=== PATIENT | male | born 1935 | race Caucasian/White ===

== ENCOUNTER 2018-11-02 17:18 | Inpatient (IN) | payer OTHER ==
[~2018-11-02] VITALS: Ht 170.2 cm; Wt 78.2 kg
[~2018-11-02 17:18] MED LIST: ALDACTONE25 MG PO; AMIODARONE HCL200 MG PO; CARVEDILOL6.25 M1 PO; COUMADIN2.5 MG PO; DIGOXIN0.125 M1 PO; DIOVAN80 MG PO; MEXILETINE250 MG PO; ZYL300 PO
[2018-11-02 18:25] LABS: BASOPHIL % 0 % (0-2); PLATELET COUNT 117 x10^3mcL (130-400)
[2018-11-02 18:28] LABS: microscopic required? YES; urine erythrocyte 3+ (NEGATIVE)
[2018-11-02 18:42] LABS: CK-MB 22.1 ng/mL (0-3.6)
[2018-11-02] MEDS ORDERED: ATORVASTATIN CA40 M1 PO (18:43)
[2018-11-02] MEDS ORDERED: FUROSEMIDE20 MG PO (18:44)
[2018-11-02] MEDS ORDERED: CYTOMEL5 MCG PO (18:44)
[2018-11-02] MEDS ORDERED: ASPIRIN ADULT L81 M5 PO (18:44)
[2018-11-02] MEDS ORDERED: SYNTHROID0.112 MG PO (18:45)
[2018-11-02] MEDS ORDERED: ELIQUIS5 MG PO (18:45)
[2018-11-02] MEDS ORDERED: PREDNISONE20 MG PO (18:46)
[2018-11-02 19:51] LABS: ALBUMIN 2.6 g/dL (3.4-5.0); ALKALINE PHOSPHATASE 69 U/L (46-116); ALT/SGPT 332 U/L (16-63); AST/SGOT 578 U/L (15-37); BILIRUBIN TOTAL 2.5 mg/dL (0.20-1.00); CALCIUM 9.7 mg/dL (8.5-10.1); CARBON DIOXIDE 30.4 mmol/L (21-32); CHLORIDE SERUM 95 mmol/L (98-107); CREATININE SERUM 2.9 mg/dL (0.7-1.3); GLUCOSE SERUM 132 mg/dL (74-106); SODIUM SERUM 132 mmol/L (136-145); TOTAL PROTEIN, SERUM 5.9 g/dL (6.4-8.2)
[2018-11-02 22:04] LABS: MAGNESIUM 3.4 mg/dL (1.8-2.4); PHOSPHOROUS 5.1 mg/dL (2.5-4.9)
[2018-11-02 22:32] LABS: CHOLESTEROL/HDL RATIO 3.9
[2018-11-02 22:37] VITALS: BP 108/58
[2018-11-03] MEDS ORDERED: CARVEDILOL3.125 M1 PO (00:55)
[2018-11-03 00:59] VITALS: BP 108/58
[2018-11-03 01:03] LABS: AMPHETAMINE QUAL UR NONE DETECTED (See below)
[2018-11-03 05:29] VITALS: BP 100/54
[2018-11-03 06:37] LABS: CALCIUM 9.3 mg/dL (8.5-10.1); CARBON DIOXIDE 33.2 mmol/L (21-32); CHLORIDE SERUM 97 mmol/L (98-107); CREATININE SERUM 2.7 mg/dL (0.7-1.3); GLUCOSE SERUM 132 mg/dL (74-106); MAGNESIUM 3.4 mg/dL (1.8-2.4); PHOSPHOROUS 5.8 mg/dL (2.5-4.9); SODIUM SERUM 137 mmol/L (136-145)
[2018-11-03 06:41] LABS: BASOPHIL % 0 % (0-2); PLATELET COUNT 109 x10^3mcL (130-400); RED CELL DISTRIBUTION WIDTH 16.9 % (11.5-14.5)
[2018-11-03 07:02] LABS: POTASSIUM SERUM 5.6 mmol/L (3.5-5.1)
[2018-11-03 08:56] VITALS: BP 97/49
[2018-11-03 13:01] VITALS: BP 93/49
[2018-11-03 16:00] VITALS: BP 144/70
[2018-11-03 20:40] VITALS: BP 99/53
[2018-11-04 05:39] VITALS: BP 94/49
[2018-11-04 06:23] LABS: CALCIUM 9.2 mg/dL (8.5-10.1); CARBON DIOXIDE 34.4 mmol/L (21-32); CHLORIDE SERUM 98 mmol/L (98-107); CREATININE SERUM 2.3 mg/dL (0.7-1.3); GLUCOSE SERUM 123 mg/dL (74-106); MAGNESIUM 3.2 mg/dL (1.8-2.4); PHOSPHOROUS 5.3 mg/dL (2.5-4.9); POTASSIUM SERUM 4.6 mmol/L (3.5-5.1); SODIUM SERUM 134 mmol/L (136-145)
[2018-11-04 07:45] LABS: BASOPHIL % 0 % (0-2); PLATELET COUNT 107 x10^3mcL (130-400); RED CELL DISTRIBUTION WIDTH 17.7 % (11.5-14.5)
[2018-11-04 09:24] VITALS: BP 93/50
[2018-11-04 13:16] VITALS: BP 97/52
[2018-11-04 17:41] VITALS: BP 118/55
[2018-11-04 20:24] VITALS: BP 104/60
[2018-11-05 04:44] VITALS: BP 102/59
[2018-11-05 06:33] LABS: BASOPHIL % 0.5 % (0-2)
[2018-11-05 06:35] LABS: PLATELET COUNT 111 x10^3mcL (130-400); RED CELL DISTRIBUTION WIDTH 17.4 % (11.5-14.5)
[2018-11-05 07:25] LABS: BILIRUBIN DIRECT 1.34 mg/dL (0.0-0.2); BILIRUBIN TOTAL 1.7 mg/dL (0.20-1.00)
[2018-11-05 07:26] LABS: ALBUMIN 2.5 g/dL (3.4-5.0); TOTAL PROTEIN, SERUM 5.6 g/dL (6.4-8.2)
[2018-11-05 07:42] LABS: CALCIUM 9.5 mg/dL (8.5-10.1); CHLORIDE SERUM 95 mmol/L (98-107); CREATININE SERUM 2.1 mg/dL (0.7-1.3); GLUCOSE SERUM 110 mg/dL (74-106); POTASSIUM SERUM 4.7 mmol/L (3.5-5.1); SODIUM SERUM 133 mmol/L (136-145)
[2018-11-05 09:07] VITALS: BP 103/57
[2018-11-05 13:24] VITALS: BP 107/66
[2018-11-05 17:19] VITALS: BP 94/49
[2018-11-05 20:52] VITALS: BP 111/56
[2018-11-06 05:49] VITALS: BP 115/72
[2018-11-06 07:02] LABS: BASOPHIL % 0.1 % (0-2)
[2018-11-06 07:05] LABS: PLATELET COUNT 101 x10^3mcL (130-400); RED CELL DISTRIBUTION WIDTH 17.4 % (11.5-14.5)
[2018-11-06 07:35] LABS: CALCIUM 9.3 mg/dL (8.5-10.1); CARBON DIOXIDE 33.4 mmol/L (21-32); CHLORIDE SERUM 96 mmol/L (98-107); CREATININE SERUM 1.8 mg/dL (0.7-1.3); GLUCOSE SERUM 110 mg/dL (74-106); POTASSIUM SERUM 4.1 mmol/L (3.5-5.1); SODIUM SERUM 135 mmol/L (136-145)
[2018-11-06 09:00] VITALS: BP 104/55
[2018-11-06 12:40] VITALS: BP 118/55
[2018-11-06 17:50] VITALS: BP 102/54
[2018-11-06 20:32] VITALS: BP 105/53
[2018-11-07 05:59] VITALS: BP 93/45
[2018-11-07 06:53] LABS: CALCIUM 9.3 mg/dL (8.5-10.1); CHLORIDE SERUM 98 mmol/L (98-107); CREATININE SERUM 1.6 mg/dL (0.7-1.3); GLUCOSE SERUM 99 mg/dL (74-106); SODIUM SERUM 138 mmol/L (136-145)
[2018-11-07 07:00] LABS: BASOPHIL % 0 % (0-2); PLATELET COUNT 112 x10^3mcL (130-400)
[2018-11-07 09:35] VITALS: BP 96/55
[2018-11-07 12:37] VITALS: BP 95/44
[2018-11-07 17:02] VITALS: BP 99/47
[2018-11-07 20:50] VITALS: BP 96/50
[2018-11-08 05:17] VITALS: BP 100/50
[2018-11-08 06:22] LABS: PLATELET COUNT 95 x10^3mcL (130-400); RED CELL DISTRIBUTION WIDTH 17.1 % (11.5-14.5)
[2018-11-08 06:23] LABS: BASOPHIL % 0 % (0-2)
[2018-11-08 06:52] LABS: CALCIUM 9.2 mg/dL (8.5-10.1); CARBON DIOXIDE 38.2 mmol/L (21-32); CHLORIDE SERUM 98 mmol/L (98-107); CREATININE SERUM 1.6 mg/dL (0.7-1.3); GLUCOSE SERUM 109 mg/dL (74-106); POTASSIUM SERUM 4.5 mmol/L (3.5-5.1); SODIUM SERUM 139 mmol/L (136-145)
[2018-11-08 09:47] VITALS: BP 91/42
[2018-11-08 10:21] VITALS: BP 91/42
[2018-11-08 13:17] VITALS: BP 94/46
[2018-11-08 18:14] VITALS: BP 96/46
[2018-11-08 21:46] VITALS: BP 93/47
[2018-11-09 05:40] VITALS: BP 113/54
[2018-11-09 08:00] VITALS: BP 102/44
[2018-11-09 12:00] VITALS: BP 103/49
[2018-11-09 16:30] VITALS: BP 101/59
[2018-11-09 20:46] VITALS: BP 101/47
[2018-11-10 06:24] VITALS: BP 105/60
[2018-11-10 06:52] LABS: BASOPHIL % 0.1 % (0-2); PLATELET COUNT 122 x10^3mcL (130-400); RED CELL DISTRIBUTION WIDTH 17.7 % (11.5-14.5)
[2018-11-10 07:43] LABS: CALCIUM 10.3 mg/dL (8.5-10.1); CARBON DIOXIDE 36.6 mmol/L (21-32); CHLORIDE SERUM 98 mmol/L (98-107); CREATININE SERUM 1.5 mg/dL (0.7-1.3); GLUCOSE SERUM 87 mg/dL (74-106); POTASSIUM SERUM 3.9 mmol/L (3.5-5.1); SODIUM SERUM 142 mmol/L (136-145)
[2018-11-10 08:40] VITALS: BP 102/49
[2018-11-10 12:20] VITALS: BP 95/44
[2018-11-10 17:46] VITALS: BP 102/49
[2018-11-10 20:35] VITALS: BP 105/53
[2018-11-11 05:05] VITALS: BP 104/52
[2018-11-11 07:41] LABS: CARBON DIOXIDE 37.5 mmol/L (21-32); CHLORIDE SERUM 100 mmol/L (98-107); CREATININE SERUM 1.5 mg/dL (0.7-1.3); GLUCOSE SERUM 90 mg/dL (74-106); MAGNESIUM 2.3 mg/dL (1.8-2.4); POTASSIUM SERUM 3.2 mmol/L (3.5-5.1); SODIUM SERUM 142 mmol/L (136-145)
[2018-11-11 08:14] LABS: BASOPHIL % 0 % (0-2); PLATELET COUNT 125 x10^3mcL (130-400); RED CELL DISTRIBUTION WIDTH 17.6 % (11.5-14.5)
[2018-11-11 08:55] VITALS: BP 107/58
[2018-11-11 11:52] VITALS: BP 98/45
[2018-11-11 15:34] VITALS: BP 101/43
[2018-11-11 15:58] VITALS: BP 98/45
== END 2018-11-11 20:51 | DRG 280 ==
LOC: ED 17:18 → DU 21:19
PROVIDERS: Emergency Medicine; Internal Medicine; ADMIT Family Medicine
DX: I13.0 Hypertensive heart and chronic kidney disease with heart failure and stage 1 through stage 4 chronic kidney disease, or unspecified chronic kidney disease (principal); I21.4 Non-ST elevation (NSTEMI) myocardial infarction; E43 Unspecified severe protein-calorie malnutrition; I50.43 Acute on chronic combined systolic (congestive) and diastolic (congestive) heart failure; N17.0 Acute kidney failure with tubular necrosis; J96.01 Acute respiratory failure with hypoxia; E87.1 Hypo-osmolality and hyponatremia; E87.3 Alkalosis; M62.82 Rhabdomyolysis; D68.69 Other thrombophilia; E11.22 Type 2 diabetes mellitus with diabetic chronic kidney disease; E11.65 Type 2 diabetes mellitus with hyperglycemia; N18.3 Chronic kidney disease, stage 3 (moderate); I48.91 Unspecified atrial fibrillation; R74.0 Nonspecific elevation of levels of transaminase and lactic acid dehydrogenase [LDH]; D63.1 Anemia in chronic kidney disease; E87.5 Hyperkalemia; D69.6 Thrombocytopenia, unspecified; E78.00 Pure hypercholesterolemia, unspecified; Z95.0 Presence of cardiac pacemaker; Z96.642 Presence of left artificial hip joint; Z68.27 Body mass index [BMI] 27.0-27.9, adult; Z79.01 Long term (current) use of anticoagulants; Z79.84 Long term (current) use of oral hypoglycemic drugs; Z86.718 Personal history of other venous thrombosis and embolism
CPT/HCPCS: 36600; 82962; 83880; 92526-GN; 92610; 94150; 97110-GP; 97530-GP; J1120; J1940; J2543; J3010; J7030; J7050; J7512; J7620; P9047; Q0092

== ENCOUNTER 2018-12-17 11:44 | Inpatient (IN) | payer OTHER ==
[~2018-12-17] VITALS: Ht 167.6 cm; Wt 79.4 kg
[2018-12-17] VITALS (7 sets, daily range): BP systolic 91–190; BP diastolic 59–95; Ht 167.6 cm; Wt 79.4 kg
[~2018-12-17 11:44] MED LIST changes: +ASPIRIN ADULT L81 M5 PO; +ATORVASTATIN CA40 M1 PO; +CARVEDILOL3.125 M1 PO; +CYTOMEL5 MCG PO; +ELIQUIS5 MG PO; +FUROSEMIDE20 MG PO; +PREDNISONE20 MG PO; +SYNTHROID0.112 MG PO
--- NOTE | 2018-12-17 12:01 | NUR ---
PATIENT BIBA FOR ALOC. PER MEDICS, FAMILY CALLED IN AND STS PATIENT WAS SPEAKING BUT HAVING DIFFICULTY BREATHING. WHEN MEDICS ARRIVED, PATIENT WAS NOT RESPONDING. MEDICS STS PULSE OX WAS IN THE 60S AND APPLIED BVM, O2 SAT IN 80S/90S. [facility] [address]IENT NOT REPLYING. DR. PUCKETT AT BEDSIDE TO PREPARE INTUBATION. FAMILY CURRENTLY NOT AT BEDSIDE BUT MAKING THEIR WAY TO THE HOSPITAL. RT AT BEDSIDE.
--- NOTE | 2018-12-17 12:49 | NUR ---
ASSISTED CINTHIA RN W/ FINDING HEAD OF PENIS, PENIS RETRACTED INTO SWOLLEN FIRM SCROTUM. WAS ABLE TO GET HEAD OF PENIS TO EMERGE ONLY TO FIND IT COATED IN AN ORANGE CHEESY SUBSTANCE. HEAD OF PENIS CLEANSED W/ WIPES PRIOR TO CINTHIA RN INSERTING ARANGO. URINE HAD DIYA PYURIA ONCE OBTAINED VIA CATH.
[2018-12-17 12:54] LABS: BASOPHIL % 0.2 % (0-2)
--- NOTE | 2018-12-17 12:55 | NUR ---
PT SENT TO CT
[2018-12-17 13:12] LABS: PLATELET COUNT 68 x10^3mcL (130-400); RED CELL DISTRIBUTION WIDTH 25.8 % (11.5-14.5)
[2018-12-17 13:14] LABS: rbc morphology (normal/abnorm) ABNORMAL (NORMAL)
[2018-12-17 13:15] LABS: ALKALINE PHOSPHATASE 87 U/L (46-116); ALT/SGPT 27 U/L (16-63); AST/SGOT 46 U/L (15-37); BILIRUBIN TOTAL 2.7 mg/dL (0.20-1.00); CALCIUM 9.2 mg/dL (8.5-10.1); CARBON DIOXIDE 38.6 mmol/L (21-32); CHLORIDE SERUM 99 mmol/L (98-107); CREATININE SERUM 2.9 mg/dL (0.7-1.3); GLUCOSE SERUM 71 mg/dL (74-106); SODIUM SERUM 138 mmol/L (136-145)
[2018-12-17 13:19] LABS: ALBUMIN 2.8 g/dL (3.4-5.0); CHOLESTEROL 62 mg/dL (<200); HDL CHOLESTEROL 16 mg/dL (40-60); POTASSIUM SERUM 5.6 mmol/L (3.5-5.1); TOTAL PROTEIN, SERUM 5.8 g/dL (6.4-8.2)
[2018-12-17 13:28] LABS: UA SPECIFIC GRAVITY 1.025 (1.005-1.035); microscopic required? YES; urine erythrocyte 3+ (NEGATIVE)
--- NOTE | 2018-12-17 13:33 | NUR ---
PT BACK FROM CT ON VENT. ABLE ASCULTATE LUNG SOUNDS BILATERALLY. CHEST RISE EVEN AND FULL, RESP RATE 14. PT EYES WERE OPEN AND RESPONDING TO FAMILY AT BEDSIDE. PT SHAKING HEAD AND MOVING ARMS. PT RESPONDS TO STIMULI. CHECKED PLACEMENT OF NG TUBE, ASCULTATED OVER EPIGASTRIC AREA. PT PLACED BACK ON CLOTHING SUPERVISOR. BP NOTED SYSTOLIC LOW 90'S. DR PUCKETT NOTIFIED. SECOND BOLUS INITIATED. ARANGO IN PLACE, 100 CC OF YELLOW URINE NOTED IN ARANGO BAG. WILL CONTINUE TO MONITOR.
--- NOTE | 2018-12-17 13:59 | NUR ---
LEVOPHED STARTED AT 2 MCG/MIN FOR BP 83/56 MAP 68
--- NOTE | 2018-12-17 14:06 | NUR ---
LEVOPHED MAINTAINED AT 2 MCG/MIN FOR BP 100/64 MAP 73.
--- NOTE | 2018-12-17 14:11 | NUR ---
LEVOPHED STARTED AT 4 MCG/MIN FOR BP OF 86/50 MAP 64.
--- NOTE | 2018-12-17 14:14 | NUR ---
LEVOPHED MAINTAINED AT 4 MCG/MIN FOR BP OF 104/53 MAP 75.
--- NOTE | 2018-12-17 14:20 | NUR ---
LEVOPHED MAINTAINED AT 4 MCG/MIN FOR BP 93/54 MAP 71. PROPOFOL STARTED AT 5 MCG/KG/MIN.
--- NOTE | 2018-12-17 14:23 | NUR ---
LEVOPHED INCREASED TO 6 MCG/MIN FOR BP OF 92/40 MAP 65. PROPOFOL MAINTAINED AT 5 MCG/KG/MIN.
--- NOTE | 2018-12-17 14:29 | NUR ---
LEVOPHED MAINTAINED AT 6 MCG/MIN FOR BP OF 91/68 MAP 74. PROPOFOL INCREASED TO 10 MCG/KG/MIN.
--- NOTE | 2018-12-17 14:37 | NUR ---
PT BILATERAL LOWER EXTREMITIES AND SCROTUM EDEMATOUS. ECCHYMOSIS NOTED ON LEFT CHEST, LEFT SHOULDER, LEFT ARM, AND RIGHT ARM IN AXILLA AREA. PER FAMILY NO TRAUMA, NO INJURY. FAMILY STATES FROM LIFTING PT FROM WHEELCHAIR TO BED AND VICE VERSA.
--- NOTE | 2018-12-17 14:40 | NUR ---
LEVOPHED MAINTAINED AT 6 MCG/MIN FOR BP 100/70 MAP 84. PROPOFOL MAINTAINED AT 10 MCG/KG/MIN.
--- NOTE | 2018-12-17 14:45 | NUR ---
LEVOPHED MAINTAINED AT 6 MCG/MIN FOR BP OF 94/62 MAP 74. PROPOFOL MAINTAINED AT 10 MCG/KG/MIN.
--- NOTE | 2018-12-17 14:47 | NUR ---
PER DR PUCKETT, INCREASE LEVOPHED UNTIL SYSTOLIC BP OF 100. LEVOPHED INCREASED TO 8 MCG/MIN. PROPOFOL INCREASED TO 15 MCG/KG/MIN. CONTINUES TO RESPOND TO STIMULI AND SHAKE HEAD.
--- NOTE | 2018-12-17 14:53 | NUR ---
LEVOPHED MAINTAINED AT 8 MCG/MIN FOR BP OF 108/68 MAP 77. PROPOFOL MAINAINTED AT 15 MCG/KG/MIN.
--- NOTE | 2018-12-17 14:58 | NUR ---
LEVOPHED MAINTAINED AT 8 MCG/MIN FOR BP 113/59 MAP 68. PROPOFOL MAINTAINED AT 15 MCG/KG/MIN.
--- NOTE | 2018-12-17 15:07 | NUR ---
LEVOPHED MAINTAINED AT 8 MCG/MIN FOR BP OF 136/64 MAP 87. PROPOFOL MAINTAINED AT 15 MCG/KG/MIN. ABLE TO TAKE RECTAL TEMP WITH NO RESPONSE TO STIMULI. PT IS STILL MOVING MOUTH AROUND ET TUBE, NO BITING NOTED. WARM BLANKETS PROVIDED FOR RECTAL TEMP OF 94.1.
--- NOTE | 2018-12-17 15:15 | NUR ---
PER FAMILY LOWER DENTURES AT HOME. UPPER DENTURES KEPT BY PT.
--- NOTE | 2018-12-17 15:22 | NUR ---
ATTEMPTED TO CALL REPORT ON PT, TOLD NURSE WAS ON LUNCH AND THAT SHE WOULD CALL BACK FOR REPORT.
--- NOTE | 2018-12-17 15:27 | NUR ---
LEVOPHED MAINTAINED AT 8 MCG/MIN FOR BP 103/62 MAP 89. PROPOFOL MAINTAINED AT 15 MCG/KG/MIN.
--- NOTE | 2018-12-17 15:48 | NUR ---
REPORT CALLED TO EKATERINA CONTRERAS.
--- NOTE | 2018-12-17 15:52 | NUR ---
LEVOPHED MAINTAINED AT 8 MCG/MIN FOR BP 104/57 MAP 76. PROPOFOL MAINTAINED AT 15 MCG/KG/MIN.
--- NOTE | 2018-12-17 15:55 | NUR ---
PT TRANSFER TO ICU AT THIS TIME VIA GURNEY, ACCOMPAINED BY EMT, NURSE, AND RT. VENT IN PLACE, RESP RATE 14. CHEST RISE SYMMETRIC AND DEEP. NGT IN PLACE. PT PLACED ON CM FOR TRANSPORT.
--- NOTE | 2018-12-17 16:10 | NUR ---
PT ADMITTED TO ICU FROM ED VIA GURNEY, ACCOMPANIED BY RN, DRILLER PORTABLE, RT, AND VENTILATOR. PT TRANSFERRED TO BED WITH MAXIMUM ASSIST. PT RESPONDS TO PAINFUL STIMULI ONLY. PT NOT ABLE TO GESTURE NEEDS OR FOLLOW VERBAL COMMANDS. PUPILS IRREGULAR IN REACTION. NGT TO BETTY ESPINOZA. ETT 7.5 @ 23 LL VCV/AC: RATE 14, PEEP 5, VT 600, FIO2 65%. HEART SOUNDS DISTANT. ECCHYMOSIS TO TRUNK AND BUE. BOWEL SOUNDS ABSENT X4. ARANGO IN PLACE DRAINING DARK YELLOW URINE, BLOODY PENILE DISCHARGE, SEVERE SCROTAL EDEMA. SCROTUM ELEVATED TO DECREASE SWELLING. EDEMA TO BLE (+3) AND RUE (+2). PERIPHERAL IVS TO RIGHT FINGER, L. FOREAEM. AND L. HAND. PROPOFOL INFUSING AT 15 MCG/KG/MIN AND LEVOPHED INFUSING AT 8 MCG/MIN.
[2018-12-17 16:37] LABS: MAGNESIUM 4.1 mg/dL (1.8-2.4)
--- NOTE | 2018-12-17 16:37 | NUR ---
MAG 4.1 DR. CHERRY MADE AWARE AND RECIEVED NO NEW ORDERS.
--- NOTE | 2018-12-17 16:51 | NUR ---
ADVANCED NG TO R JUDE PALM ORDERED TO CONFIRM PLACEMENT.
--- NOTE | 2018-12-17 17:40 | NUR ---
DR. CHERRY EXPLAINED THE INDICATION, BENITFITS AND RISKS SUCH INFECTION, BLEEDING TO DECISION MAKER SISTER AND FAMILY MEMBER AT BEDSIDE. SISTER VERBALIZED UNDERSTANDING AND DID NOT HAVE ANY QUESTIONS IN AGREEMENT FOR CENTRAL LINE INSERTION.
--- NOTE | 2018-12-17 18:05 | NUR ---
MRSA TO BL NARES SENT TO LAB.
--- NOTE | 2018-12-17 18:19 | NUR ---
KUB AT BEDSIDE TO CONFIRM NG PLACEMENT.
--- NOTE | 2018-12-17 18:45 | NUR ---
DECISION MAKER SISTER AND FAMILY BROUGHT IN ADVANCE DIRECTIVE AND EXPRESSED THAT THEY WANT TO STOP TREATMENT TO PROVIDE COMFORT CARE WITH DR. CHERRY AND DR. RUSSELL. DR. FLORES MADE AWARE TO PT'S FAMILY THAT PT WILL BE ON MORPHINE DRIP AND PT WILL PASS POST EXUBATION AND STOP TREATMENT. FAMILY VERBALIZED UNDERSTANDING.
--- NOTE | 2018-12-17 19:15 | NUR ---
RECIEVED REPORT FROM [facility] TO[facility]. NURSING UPDATES POC DISCUSSED. RESUMED CARE OF PT. PT INTUBATED & SEDATED W/ PROPOFOL. VENTED TO AC MODE. SCROTAL EDEMA. NSR. PACEMAKER. L CHEST & BUE SCATTEREED ECCHYMOSIS. NG RNARE. L HAND R HAND PIV. F/C SECURE & INTACT. LEVOPHED INFUSING. NS INFUSING. REPORT RECIEVED STATUS CHANGED TO DNR. PHARMACY NOTIFIED TO MORPHINE DRIP TO BE INITIATED. PALLIATIVE CARE INITIATED.
--- NOTE | 2018-12-17 20:06 | NUR ---
SPOKE W/ FAMILY FOR INITIATION OF MORPHINE DRIP. PT NOTIFIED FOR A FEW MINUTES TO SAY FINAL GOODBYES THEN IT'D BE OK TO INITIATE MORPHINE. AWAITING CONFIRMATION W/ FAMILY TO START THERAPY.
--- NOTE | 2018-12-17 20:24 | NUR ---
MORPHINE DRIP INTIATED W/ FAMILY CONSENT ALL OTHER MEDICATIONS OFF. RT NOTIFIED FOR EXTUBATION. FAMILY LATHAE'S SAID. AWAITING RT.
--- NOTE | 2018-12-17 20:30 | NUR ---
RT @ BEDSIDE FOR EXTUBATION. PT EXTUBATION W/ NO MINIMAL DISTRESS. MORPHINE TITRATED FROM 4MG/HR TO 6MG/HR TO SLIGHT DISTRESS/AGITATION. PT TOLERATED WELL NOW RESTING IN BED. SIGN OF INCREASED TACHY. O2 SAT DECREASING. WILL CONT TO MONITOR.
--- NOTE | 2018-12-17 20:50 | NUR ---
PT NOTED W/ VTACH / V FIB.
--- NOTE | 2018-12-17 21:01 | NUR ---
DR ROACH NOTIFIED FOR PT ASYSTOLE. FAMILY MADE AWARE. AWAITING DR @ BEDSIDE. STRIP PRINTED & PLACED IN CHART.
--- NOTE | 2018-12-17 21:16 | NUR ---
MORPHINE TITRATED OFF PT DECLARATION OF PT .
--- NOTE | 2018-12-17 22:05 | NUR ---
DR ROACH @ BEDSIDE 2114 DECLARATION OF BY FAMILY NOTIFIED. INITATION OF PROTOCOL STARTED. NOTIFIED [facility] W/ . [facility] CALLED BACK NURSING UPDATES ON PT. W/ STATING RELEASING OF REMAINS. CALLED [facility] OFFICE NOTIFIED OF CALL BACK W/ [id number]. AWAITING STAMPING DIE TRY OUT WORKER CALL.
--- NOTE | 2018-12-17 22:05 | NUR ---
PRODUCTION UTILITY WORKER MADE AWARE OF PT EXPIRATION
--- NOTE | 2018-12-17 22:21 | NUR ---
PT EXTUBATED AT 2029. FAMILY AT BEDSIDE.
--- NOTE | 2018-12-17 22:31 | NUR ---
LEEANN POSEY NURSING UPDATES GIVEN PT HISTORY OBTAINED. JUANI DECLARED PT NOT A CORONERS CASE AND THAT SHE STATED THERE IS NO CASE NUMBER.
--- NOTE | 2018-12-17 23:30 | NUR ---
PT CLEANED, LINES REMOVED, TOE TAG, BAG AND TAG APPLIED, WRIST BAND IN PLACE FOR IDENTIFICATION. SECURITY NOTIFIED. SECURITY NOTIFIED.
--- NOTE | 2018-12-17 23:44 | NUR ---
SECURITY @ BEDSIDE FOR PICKUP. 3 FORMS IDENTIFICATION USED PT RELEASED W/ PAPERWORK TO SECURITY.
== END 2018-12-17 21:15 | disposition expired | DRG 871 ==
LOC: ED 11:44 → IC 14:45
PROVIDERS: Emergency Medicine; ADMIT General Practice
PROC: 5A1935Z Respiratory Ventilation, Less than 24 Consecutive Hours (ICD-10-PCS; principal; 2018-12-17)
PROC: 0BH17EZ Insertion of Endotracheal Airway into Trachea, Via Natural or Artificial Opening (ICD-10-PCS; 2018-12-17)
DX: A41.9 Sepsis, unspecified organism (principal); J18.9 Pneumonia, unspecified organism; J96.02 Acute respiratory failure with hypercapnia; N17.0 Acute kidney failure with tubular necrosis; N39.0 Urinary tract infection, site not specified; E44.0 Moderate protein-calorie malnutrition; I24.8 Other forms of acute ischemic heart disease; E87.5 Hyperkalemia; E86.0 Dehydration; N18.9 Chronic kidney disease, unspecified; E03.9 Hypothyroidism, unspecified; E78.5 Hyperlipidemia, unspecified; Z51.5 Encounter for palliative care; D53.9 Nutritional anemia, unspecified; D69.6 Thrombocytopenia, unspecified; Z99.3 Dependence on wheelchair; Z99.81 Dependence on supplemental oxygen; Z68.29 Body mass index [BMI] 29.0-29.9, adult
CPT/HCPCS: 36600; A4628; J2060; J2270; J2543; J2704; J3370; J3490; J7030; Q0092